=== PATIENT | female | born 1990 | race Caucasian/White ===

== ENCOUNTER 2017-07-15 22:29 | Emergency (ER) | payer MEDICAID ==
[2017-07-15 22:51] VITALS: TEMP 98.6
--- NOTE | 2017-07-15 23:04 | C.PDOC ---
History Of Present Illness 27 y/o female presents to the ER with substance abuse.Patient stated they smoked heroin around 7-8 pm, and was found passed out on the floor by significant other. Patient was accompanied by significant other who stated they performed CPR on patient after finding her. Patient's significant other stated that "her face was purple" in regards to patient. Patient states multiple times that "she just needs to sleep" and that "smoking is not a problem". Patient has a Hx of ETOH abuse and occasional marijuana abuse. Chief Complaint (Nursing): Substance Abuse History Per: Patient History/Exam Limitations: no limitations Onset/Duration Of Symptoms: Hrs Suicide/Self Injury Attempted (Context): None Modifying Factor(s): Other (heroin) Associated Symptoms: denies: Suicidal Thoughts, Suicidal Plan Recent travel outside of the [place]: No Past Medical History Reviewed: Historical Data, Nursing Documentation, Vital Signs Vital Signs: Last Vital Signs Temp 98.6 F 07/15/17 22:41 Pulse 85 07/15/17 23:16 Resp 16 07/15/17 23:16 BP 132/71 07/15/17 23:16 Pulse Ox 93 L 07/16/17 00:34 - Medical History PMH: Anxiety, Asthma, Depression Surgical History: No Surg Hx, Tonsillectomy Family History: States: Unknown Family Hx - Social History Hx Alcohol Use: Yes Hx Substance Use: Yes - Immunization History Hx Tetanus Toxoid Vaccination: No Hx Influenza Vaccination: No Hx Pneumococcal Vaccination: No Review Of Systems Except As Marked, All Systems Reviewed And Found Negative. Constitutional: Negative for: Fever, Chills Gastrointestinal: Negative for: Nausea, Vomiting Physical Exam - Physical Exam Appears: Non-toxic, No Acute Distress Skin: Normal Color, Warm, Dry Head: Atraumatic, Normacephalic Eye(s): bilateral: Abnormal Pupil (mid-sized) Oral Mucosa: Moist Chest: Symmetrical Cardiovascular: Other (mildly tachycardic) Respiratory: Normal Breath Sounds Gastrointestinal/Abdominal: Soft, No Tenderness Extremity: Bilateral: Other (no external evidence of IV drug abuse) DTR: Bicep (R): 2+, Bicep (L): 2+ Neurological/Psych: Oriented x3, Normal Speech, Normal Cognition, Receptive Aphasia ED Course And Treatment O2 Sat by Pulse Oximetry: 93 (room air) Pulse Ox Interpretation: Normal Disposition - Disposition Referrals: Alcoholics Anonymous [Outside] Disposition: HOME/ ROUTINE Disposition Time: 23:02 Condition: FAIR Additional Instructions: contact AA or NA re recent drug and alcohol use Forms: [facility] (Kyrgyz), General Discharge Instructions - Clinical Impression Clinical Impression: Polysubstance (including opioids) dependence w/o physiol dependence - Scribe Statement The provider has reviewed the documentation as recorded by the Susanna West Provider Attestation: All medical record entries made by the Enricoibe were at my direction and personally dictated by me. I have reviewed the chart and agree that the record accurately reflects my personal performance of the history, physical exam, medical decision making, and the department course for this patient. I have also personally directed, reviewed, and agree with the discharge instructions and disposition.
--- NOTE | 2017-07-15 23:06 | C.PDOC ---
Chief Complaint (Nursing): Substance Abuse Past Medical History Vital Signs: Last Vital Signs Temp 98.6 F 07/15/17 22:41 Pulse 96 H 07/15/17 22:41 Resp 11 L 07/15/17 22:41 BP 135/79 07/15/17 22:41 Pulse Ox 93 L 07/15/17 22:41 - Medical History PMH: Anxiety, Asthma, Depression Denies: Diabetes, Hepatitis, HIV, HTN, Chronic Kidney Disease, Seizures, Sexually Transmitted Disease Surgical History: Tonsillectomy Family History: States: Unknown Family Hx - Social History Hx Alcohol Use: Yes Hx Substance Use: Yes - Immunization History Hx Tetanus Toxoid Vaccination: No Hx Influenza Vaccination: No Hx Pneumococcal Vaccination: No ED Course And Treatment O2 Sat by Pulse Oximetry: 93 Disposition - Disposition Forms: [facility] (Thai)
[2017-07-15 23:17] VITALS: BP 132/71; PULSE 85; RESP 16
[2017-07-15 23:41] VITALS: O2SAT 93
== END 2017-07-15 23:18 | disposition home or self-care (01) ==
LOC: C.ER 22:29
DX: F19.20 Other psychoactive substance dependence, uncomplicated (principal); F11.20 Opioid dependence, uncomplicated